=== PATIENT | female | born 1955 | race Caucasian/White ===

== ENCOUNTER 2021-10-06 20:59 | Emergency (ER) | payer BC, OTHER ==
[~2021-10-06] VITALS: Ht 154.9 cm; Wt 85.9 kg
[2021-10-06 20:59] VITALS: BP 132/73
[~2021-10-06 20:59] MED LIST: ACET65TA OR; COUM1TAB18 OR; COUM1TAB18 PO; CYMB1CAP5 OR; IBUP400T OR; LEVOXYL PO; LYRI50CA PO; OMEP20TA7 OR; OXYC10TA97 OR; OXYC1TAB23 PO; PERC5TAB8 OR; ROPINIROLE PO; VICO5TAB OR; VITA500T OR; VITACAP33 PO; VITAMIN D PO; VITAMIN D2 PO
[2021-10-07 01:00] VITALS: O2SAT 97
[2021-10-07] MEDS ORDERED: PSEUDOEPHEDRINE 30 MG TAB PO STA (01:26)
[2021-10-07] MEDS ORDERED: ONDANSETRON 4MG ORAL DISINTEGRATING TAB PO ONE (01:30)
[2021-10-07] MEDS ORDERED: ACETAMINOPHEN 325 MG TAB PO ONE (01:30)
[2021-10-07] MEDS ORDERED: ROPI2TAB3 PO (01:41)
[2021-10-07] MEDS ORDERED: SYNT125T PO (01:41)
[2021-10-07] MEDS ORDERED: VITMTA PO (01:41)
[2021-10-07] MEDS ORDERED: CYMB60CA4 PO (01:41)
[2021-10-07] MEDS ORDERED: HOME MED LIST COMPLETE! XX SCH (01:45)
[2021-10-07] MEDS ORDERED: NIRMATRELVIR/RITONAVIR CO-PACK (EMERGENCY USE AUTH) PO SCH ×2 (09:00)
== END 2021-10-07 02:22 | disposition home or self-care (01) ==
LOC: M ED 20:59
DX: U07.1 COVID-19 (principal); R05.9 Cough, unspecified; J02.9 Acute pharyngitis, unspecified; R52 Pain, unspecified; I10 Essential (primary) hypertension; K21.9 Gastro-esophageal reflux disease without esophagitis; Z79.899 Other long term (current) drug therapy; Z79.890 Hormone replacement therapy; Z88.5 Allergy status to narcotic agent; Z88.8 Allergy status to other drugs, medicaments and biological substances